=== PATIENT | male | born 1990 | race Caucasian/White ===

== ENCOUNTER 2021-02-13 21:23 | Emergency (ER) | payer OTHER, SELFPAY ==
[2021-02-13 21:36] VITALS: BP 127/76; PULSE 75; RESP 18; TEMP 36.8; O2SAT 96; BMI 21.5
[2021-02-13 21:38] VITALS: BP 127/76; PULSE 75; RESP 16; TEMP 36.8; O2SAT 97; BMI 21.5
--- NOTE | 2021-02-14 00:44 | PC.NURSE ---
CALLED PT, NO RESPONSE IN TRIAGE.
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
== END 2021-02-14 00:49 | disposition left against medical advice (07) ==
PROVIDERS: Emergency Provider Emergency Medicine Emergency Medical Services
DX: Z04.1 Encounter for examination and observation following transport accident (principal)
CPT/HCPCS: 99281; 99282